=== PATIENT | female | born 1960 ===

== ENCOUNTER 2021-08-14 06:00 | Outpatient (RCR) | payer OTHER, SELFPAY | END 2021-08-30 23:59 | disposition home or self-care (01) | LOC: TPT 06:00 | PROVIDERS: PCP Nurse Practitioner Family; Referring Provider Nurse Practitioner Family; Visit Provider Nurse Practitioner Family | DX: M54.2 Cervicalgia (principal) | CPT/HCPCS: 97110; 97140; 97163 ==

== ENCOUNTER 2021-08-31 06:00 | Outpatient (RCR) | payer OTHER, SELFPAY | END 2021-09-20 23:59 | disposition home or self-care (01) | LOC: TPT 06:00 | PROVIDERS: PCP Nurse Practitioner Family; Referring Provider Nurse Practitioner Family; Visit Provider Nurse Practitioner Family | DX: M54.2 Cervicalgia (principal) | CPT/HCPCS: 97032; 97110; 97140 ==

== ENCOUNTER 2024-06-17 12:30 | Outpatient (CLI) | payer OTHER, SELFPAY ==
--- NOTE | 2024-06-17 12:50 | XRR_ITS ---
PROCEDURE INFORMATION: Exam: XR Right Knee Exam date and time: 06/17/2024 1:08 PM Age: 63 years old Clinical indication: Right knee pain. Misstepped x 2 weeks ago, first digit pain and swelling. ; Additional info: Right knee pain TECHNIQUE: Imaging protocol: Radiologic exam of the right knee. Views: 1 or 2 views. COMPARISON: No relevant prior studies available. FINDINGS: Bones/joints: Mild primary osteoarthritis. Small knee joint effusion. No acute fracture is identified. Soft tissues: The extensor mechanism is overall intact. Mild ventral soft tissue swelling. Vasculature: Atherosclerotic arterial calcifications are noted. XR/XR knee RT 1-2V [id number] IMPRESSION: 1. No acute fracture is identified. 2. Mild primary osteoarthritis. 3. Small knee joint effusion. 4. Mild ventral soft tissue swelling.
--- NOTE | 2024-06-17 12:52 | XRR_ITS ---
PROCEDURE INFORMATION: Exam: XR Left Foot Exam date and time: 06/17/2024 1:08 PM Age: 63 years old Clinical indication: Foot; Left; Patient HX: Misstepped x 2 weeks ago, first digit pain and swelling. ; Additional info: Foot swelling TECHNIQUE: Imaging protocol: Radiologic exam of the left foot. Views: 3 or more views. COMPARISON: CR XR knee LT 3V* [id number] 03/13/2019 12:40 AM FINDINGS: Bones/joints: Bipartite medial and lateral hallux sesamoids are seen. There is sclerosis and lucency involving the 4th metatarsal which may reflect remote, healed fracture. No definite acute fracture is identified. Correlate for tenderness. Plantar and posterior calcaneal spurs. Mild scattered degenerative changes. Soft tissues: Dorsal soft tissue swelling. XR/XR foot LT min 3V* [id number] IMPRESSION: 1. Sclerosis and lucency involving the 4th metatarsal which may reflect remote, healed fracture. No definite acute fracture is identified. Correlate for tenderness. Consider cross-sectional imaging. 2. Dorsal soft tissue swelling. 3. Plantar and posterior calcaneal spurs.
== END 2024-06-17 12:31 | disposition home or self-care (01) ==
PROVIDERS: PCP Nurse Practitioner Family; Visit Provider Nurse Practitioner Family
DX: M17.11 Unilateral primary osteoarthritis, right knee (principal); R93.6 Abnormal findings on diagnostic imaging of limbs; M77.32 Calcaneal spur, left foot; M79.672 Pain in left foot; M79.89 Other specified soft tissue disorders; X50.1XXA Overexertion from prolonged static or awkward postures, initial encounter
CPT/HCPCS: 73560; 73630